=== PATIENT | female | born 1975 ===

== ENCOUNTER 2016-11-25 11:39 | Emergency (ER) | payer BC ==
[2016-11-25 11:47] VITALS: BP 110/65
--- NOTE | 2016-11-25 12:19 | UC ---
Respiratory Complaint HPI - History of Current Complaint Chief Complaint: UCRespiratory Stated Complaint: COUGH,CHEST COMPLAINT Time Seen by Provider: 11/25/16 11:55 Hx Obtained From: Patient Hx Last Menstrual Period: iud ?: No Onset/Duration: Gradual Onset - has had cough and URI symps for over 2 weeks. is no better, cough starting to make L side of chest burn. also feels a bit short of breath when running Timing: Constant Severity Initially: Mild Severity Currently: Moderate Aggravating Factors: Deep Breaths Alleviating Factors: Upright Position Associated Signs And Symptoms: Positive: Fever, Pleuritic Chest Pain, URI. Negative: Wheezing, Hemoptysis, Dizziness, Calf Pain, Calf Swelling - Allergies/Home Medications Allergies/Adverse Reactions: Allergies Allergy/AdvReac Type Severity Reaction Status Date / Time No Known Allergies Allergy Verified 05/16/14 13:11 PMH/Surg Hx/FS Hx/Imm Hx Previously Healthy: Yes - Surgical History Surgical History: None - Family History Known Family History: Positive: None - Social History Occupation: Employed Full-time - teacher Alcohol Use: Weekly Substance Use Type: None Smoking Status (MU): Never Smoked Tobacco Review of Systems Constitutional: Fever, Fatigue Skin: Negative Respiratory: Shortness Of Breath, Cough Cardiovascular: Negative Gastrointestinal: Negative Psychological: Negative All Other Systems Reviewed And Are Negative: Yes Physical Exam Triage Information Reviewed: Yes Appearance: Well-Appearing, No Pain Distress, Well-Nourished Vital Signs: Initial Vital Signs Temp 99.5 F 11/25/16 11:44 Pulse 107 11/25/16 11:44 Resp 18 11/25/16 11:44 BP 110/65 11/25/16 11:44 Pulse Ox 100 11/25/16 11:44 Vital Signs Reviewed: Yes ENT: Positive: Normal ENT inspection Neck: Positive: Supple, Nontender, No Lymphadenopathy Respiratory: Positive: Lungs clear, Other: - persistent dry cough, holds L side chest when coughing Cardiovascular Exam: Normal Cardiovascular: Positive: RRR, No Murmur, Pulses Normal, Brisk Capillary Refill Musculoskeletal Exam: Normal - no calf edema, redness or pain bilaterally Neurological Exam: Normal Psychological Exam: Normal Skin Exam: Normal Skin: Negative: rashes UC Diagnostic Evaluation - Laboratory O2 Sat by Pulse Oximetry: 100 Respiratory Course/Dx - Differential Dx/Diagnosis Differential Diagnosis/HQI/PQRI: Bronchitis, Lower Resp Infection, Pulmonary Embolism, Other - pleurisy Provider Diagnoses: bronchitis Discharge - Discharge Plan Condition: Good Disposition: HOME Prescriptions: Azithromycin TAB* [Zithromax TAB (Z-DANY) 250 mg #6 tabs] 2 tab PO .TODAY, THEN 1 DAILY #1 dany Patient Education Materials: Acute Bronchitis (ED) Referrals: Cy Araujo MD [Primary Care Provider] - 3 Days (if no better) Additional Instructions: increase fluids take antibiotic as prescribed use ibuprofen 800mg every 6 hours with food for 3-5 days
--- NOTE | 2016-11-25 12:48 | RAD ---
INDICATION: Chest pain and cough x2 weeks COMPARISON: None TECHNIQUE: PA and lateral views of the chest were obtained. FINDINGS: The heart and mediastinum are normal in size and contour. The lungs are grossly clear. There is no evidence of large pleural effusion. Visualized bones are normal for the patient's age. There is no radiographic evidence of free air beneath the diaphragm IMPRESSION: No radiographic evidence of acute cardiopulmonary disease.
== END 2016-11-25 13:12 | disposition home or self-care (01) ==
LOC: UCEAST 11:39
DX: J40 Bronchitis, not specified as acute or chronic (principal)
CPT/HCPCS: 71020; 99212; G0463